=== PATIENT | female | born 1985 | race African-American/Black ===

== ENCOUNTER 2022-04-04 11:29 | Emergency (ER) | payer OTHER ==
[~2022-04-04] VITALS: Ht 157.5 cm; Wt 59.0 kg
[2022-04-04 11:35] VITALS: BP 99/48
[2022-04-04] MEDS ORDERED: KETOROLAC TROMETH 60MG/2ML VIAL IM ONE (13:15)
[2022-04-04] MEDS ORDERED: METH500T22 PO (13:25)
[2022-04-04] MEDS ORDERED: IBUP600T27 PO (13:25)
== END 2022-04-04 13:35 | disposition home or self-care (01) ==
LOC: ER 11:29
DX: M54.41 Lumbago with sciatica, right side (principal); M54.42 Lumbago with sciatica, left side; F17.210 Nicotine dependence, cigarettes, uncomplicated; Z79.1 Long term (current) use of non-steroidal anti-inflammatories (NSAID); Z79.899 Other long term (current) drug therapy; Z88.0 Allergy status to penicillin
CPT/HCPCS: 96372; 99283; J1885